=== PATIENT | male | born 1980 | race Caucasian/White ===

== ENCOUNTER → 2017-05-29 | Outpatient (CLI) | payer BC ==
[~2017-05-29] MED LIST: ASPIRIN 81M81 MG/TA2 PO; LOPRESSOR 225 MG/TAB PO; NITROSTAT0.4 MG/TAB SL; [UNRECOGNIZED DRUG - REMARK]
== END ==
LOC: COL.RAD 09:45
DX: R19.09 Other intra-abdominal and pelvic swelling, mass and lump (principal)